=== PATIENT | female | born 1985 | race Two or more races ===

== ENCOUNTER → 2023-10-21 13:15 | Outpatient (REF) | payer BC, SELFPAY | LOC: WDC 13:15 | PROVIDERS: ATTENDING PHYSICIAN Family Medicine | DX: Z12.31 Encounter for screening mammogram for malignant neoplasm of breast (principal) | CPT/HCPCS: 77063; 77067 ==

== ENCOUNTER → 2023-11-18 09:12 | Outpatient (REF) | payer BC, SELFPAY | LOC: WDC 09:12 | PROVIDERS: ATTENDING PHYSICIAN Family Medicine | DX: R92.2 Inconclusive mammogram (principal) | CPT/HCPCS: 76641 ==

== ENCOUNTER 2024-10-20 17:51 | Emergency (ER) | payer OTHER, SELFPAY ==
[2024-10-20 17:57] VITALS: BP 126/77
[2024-10-20 18:23] LABS: Hematocrit 30.0 % (37.0-47.0); Hemoglobin 10.1 g/dL (12.0-16.0); Mean Corp Hgb Conc. 33.7 g/dL (33.0-37.0); Mean Corpuscular Volume 80.9 fL (81.0-99.0); Nucleated Red Blood Cells % 0 %; Platelet Count 287 10^3/uL (130-400); Red Cell Dist. Width 12.6 % (11.5-14.5)
[2024-10-20 18:50] LABS: HCG, Serum Qualitative Screen Negative
[2024-10-20 18:56] LABS: ALT (SGPT) 16 U/L (0-35); AST (SGOT) 19 U/L (14-36); Albumin 4.2 g/dl (3.5-5.0); Alkaline Phosphatase 39 U/L (38-126); Blood Urea Nitrogen 8 mg/dl (7-17); Calcium 9.1 mg/dl (8.4-10.2); Carbon Dioxide 25 mmol/L (22-30); Chloride 102 mmol/L (98-107); Glucose 101 mg/dl (70-99); Lipase 72 U/L (23-300); Potassium 4.3 mmol/L (3.5-5.1); Sodium 134 mmol/L (135-145); Total Protein 7.1 g/dl (6.3-8.2); eGFR > 60.00
--- NOTE | 2024-10-20 19:38 | ED.GENMED ---
Addendum entered and electronically signed by Cassy Diaz NP 10/22/24 16:39:
Stool neg for Cdiff
Original Note:
History of Present Illness
General
Chief Complaint: Abdominal Symptoms
Source: patient
Exam Limitations: none
Time Seen by Provider: 10/20/24 19:37
Nursing documentation reviewed up to this point in time: agreed with
History of Present Illness
History of Present Illness:
39 yo female w h/o HLD, Hypothyroid, presents with complaints of stomach cramps and diarrhea. The symptoms began suddenly 2 evenings ago and are characterized by a sensation of bubbling in the abdomen followed by an urgent need to have a bowel
movement, resulting in diarrhea. The patient reports that the diarrhea is watery with no presence of blood, but it has an unusual odor. She feels a sensation of fullness and discomfort prior to bowel movements.
Associated symptoms include chills but no fever. The patient denies any fever, nausea, or vomiting. She reports the last episode of diarrhea occurred approximately 20 minutes ago. She denies recent antibiotic use and recent travel.
Patient also states she has had lateral right hip pain for the past month with no recollection of overuse or injury
Past History
Past History
ED Past Medical History: Hypercholesterolemia and Other (Sandie's thyroiditis, vitamin D deficiency)
Social History
Tobacco: Non-smoker
Alcohol: None
Personal:
Living: with family
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
Review of Systems
Review of Systems
Allergies reviewed?: Yes
All Other Systems: ROS reviewed and negative except as documented in HPI and ROS
Constitutional: Reports chills; Denies fever
Respiratory: Denies trouble breathing
Cardiac: Denies chest pain
ABD/GI: Reports abdominal pain, nausea and diarrhea; Denies vomiting, bloody stools or black stools
: Denies dysuria, frequency or difficulty voiding
Musculoskeletal: Reports other (pain lateral aspect right hip past month)
Skin: Reports no symptoms
Neurological: Reports no symptoms
Phy Exam
Physical Exam
Physical Exam:
GENERAL: No acute distress. A&Ox3.
CONSTITUTIONAL: Afebrile.
EYES: clear, conjunctivae normal
ENMT: moist mucus membranes
RESPIRATORY: Regular respirations, nonlabored, lungs clear.
CARDIOVASCULAR: Regular rate and rhythm, no murmurs, no rubs.
GI: Soft, mildly generally tender, no guarding, nondistended, normal BS
MUSCULOSKELETAL: Moves with ease. Well perfused. Mildly tenderness to palpate lateral right hip. Full ROM with no joint pain or tenderness. Distal n/v intact.
SKIN: Warm, dry, normal
PSYCH: Normal mood and affect. Well kept, interactive and appropriate
NEUROLOGIC: Awake, alert and oriented. No focal neurological deficits
Course
Orders/Labs/Results
Orders:
Orders
10/20/24 18:00
Test Result ONCE
10/20/24 18:16
Complete Blood Count/With Diff Urgent
Comprehensive Metabolic Panel Urgent
HCG, Serum Qualitative Screen Urgent
Lipase Urgent
10/20/24 19:47
CT Abd/pel W Iv And Oral Contr Urgent
Comment:
Reason For Exam: general abd pain, diarrhea, bloating 3 aays
Iohexol [Omnipaque] See Protocol PO NOW STA
10/20/24 19:56
Hip, Right 2-3 Views [CR Hip - RT w/wo Pel 2-3 Vw*] Urgent
Comment:
Reason For Exam: lateral hip pain one month, no known injury
Include a pelvis x-ray?: No
10/20/24 21:00
CDIFF [C difficile Antigen & Toxins] Urgent
[facility] Source: Feces/Stool
Specimen Description:
Date Specimen was Collected: 10/20/24
Time Specimen was Collected: 20:50
Stool Culture Urgent
[facility] Source: Feces/Stool
Specimen Description:
Date Specimen was Collected: 10/20/24
Time Specimen was Collected: 20:50
10/20/24 21:49
Dexamethasone Sod Phosphate [Decadron] 10 mg IV NOW STA
10/20/24 22:47
Amoxicillin 875 mg/Clav 125 mg [Augmentin 875 mg/125 mg] 1 tablet PO NOW STA
Abnormal Lab Results
10/20/24
18:16
RBC 3.71 L 10^6/uL
(4.20-5.40)
Hgb 10.1 L g/dL
(12.0-16.0)
Hct 30.0 L %
(37.0-47.0)
MCV 80.9 L fL
(81.0-99.0)
Lymphocytes % 17.6 L %
(20.5-51.1)
Sodium 134 L mmol/L
(135-145)
Glucose 101 H mg/dl
(70-99)
10/20/24 18:16
10/20/24 18:16
Vital Signs
Initial and Last Documented VS:
Initial Vital Signs
Temp Pulse Resp BP Pulse Ox
100.3 F 98 16 126/77 100
10/20/24 17:57 10/20/24 17:57 10/20/24 17:57 10/20/24 17:57 10/20/24 17:57
Last Documented Vital Signs
Temp Pulse Resp BP Pulse Ox
100.3 F 84 16 100/71 99
10/20/24 17:57 10/20/24 23:02 10/20/24 23:02 10/20/24 23:02 10/20/24 23:02
MDM/Problems Addressed
Differential Diagnosis Includes:
The Differential Diagnosis includes, in no particular order and is not limited to:
1. Viral Gastroenteritis
2. Bacterial Gastroenteritis
3. Food Poisoning
4. Inflammatory Bowel Disease
5. Irritable Bowel Syndrome
6. Clostridium difficile infection
MDM/Problems Addressed:
39 yo female w h/o HLD, Hypothyroid, presents with complaints of stomach cramps and diarrhea. The symptoms began suddenly 2 evenings ago and are characterized by a sensation of bubbling in the abdomen followed by an urgent need to have a bowel
movement, resulting in diarrhea. The patient reports that the diarrhea is watery with no presence of blood, but it has an unusual odor. She feels a sensation of fullness and discomfort prior to bowel movements.
Associated symptoms include chills but no fever. The patient denies any fever, nausea, or vomiting. She reports the last episode of diarrhea occurred approximately 20 minutes ago. She denies recent antibiotic use and recent travel.
Patient also states she has had lateral right hip pain for the past month with no recollection of overuse or injury
Afebrile, NAD
No systemic infectious symptoms
Problem list:
Acute Problems:
- Acute Gastroenteritis
- Suspected Bursitis
Plan:
1. Obtain a stool sample for bacterial culture to rule out infections such as Clostridium difficile, Salmonella, etc.
2. Order a Computed Tomography scan of the abdomen for further evaluation of abdominal symptoms.
3. Prescribe a short course of prednisone for suspected bursitis.
4. Advise symptomatic management with ice or heat application to the affected hip area as tolerated and the use of ibuprofen for pain relief.
5. Educate the patient on the signs of worsening symptoms and when to seek urgent care.
CBC: Hgb 10.1 otherwise unremarkable (nothing to compare)
CMP: Normal
HCG neg
Xray Right Hip: Calcific bursitis
10:40 p.m.
CAT scan abdomen pelvis with p.o. and IV contrast radiology report read:IMPRESSION:
1. Acute uncomplicated pancolitis, likely of infectious/inflammatory etiology.
2. Indeterminate 8 mm hepatic lesion. Recommend outpatient workup with dedicated MRI abdomen without and with gadolinium contrast.
*Pulse Oximetry
SaO2: 100
Oxygen Mode of Delivery: Room air
Patient hypoxic: not evaluated
*Critical Care Note
Total Time (30-74mins, 75-104mins- exclusive of procedures): Not Applicable
ED Attending Note
-
Portions of this chart may have been created with voice recognition software.� Occasional wrong word or��sound alike� substitutions may have occurred due to the inherent limitations of voice recognition software.
Discharge Plan
Departure
Patient Disposition: Home (Routine Discharge)
Date of Disposition: 10/20/24
Time of Disposition: 22:47
Patient with high blood pressure during this ER visit?: No
Condition: Fair
Discharge Problem:
Pancolitis, calcific bursitis right hip
Instructions: Diarrhea in teens and adults, Clear Liquid Diet, Hip Bursitis Exercises, Colitis, Bursitis - ED discharge instructions
Prescriptions:
New
amoxicillin-pot clavulanate 875-125 mg tablet
1 tab PO Q12H Qty: 20 0RF
prednisone 20 mg tablet
40 mg PO DAILY Qty: 8 0RF
ondansetron 4 mg tablet,disintegrating
4 mg PO Q8H PRN (Reason: nausea and vomiting) 4 Days Qty: 12 0RF
Referrals:
Jacob Arteaga DO [Family Provider, Internal Medicine]
Lucy Boyle DO [Active, Gastroenterology] - Call in 1-3 days for appt
Activity Restrictions/Additional Instructions:
As we discussed, you have colitis
Until we get your stool cultures back do not take any antidiarrheal medication
Return here immediately for bloody stools, worsening abdominal pain, fever or feeling sicker in any way
Clear liquid diet for 1-2 days, then slowly advance diet as tolerated.
I sent a prescription to your pharmacy for Augmentin to take twice a day for 10 days starting tomorrow as we gave you a dose here today. I also sent a prescription to your pharmacy for Zofran to use for nausea as needed
You may call me at [phone] on Friday if you haven't heard any results of your stool tests by then
I gave you the name of the GI doctor to follow-up with, call tomorrow and ask when they want to see you
You have a small spot on your liver, as we noted in the CT report please discuss with your primary doctor or the GI doctor to have it further evaluated.
Have your Hemoglobin rechecked also, discuss with your primary doctor.
You have bursitis in your hip. I sent a prescription to your pharmacy for Prednisone to take 40 mg daily for 4 days. You were given a dose of steroid here.
Interventions
Interventions:
*Risk Screen - Suicide Last Done: 10/20/24 20:19
*General Assessment Last Done: 10/20/24 20:19
*Neglect/Abuse Screening Last Done: 10/20/24 20:19
*ED- Fall Risk Assessment Last Done: 10/20/24 20:19
*ED COVID-19 Vaccine History Last Done: 10/20/24 20:19
XP-Clzeel-Kxtpmrntkl Assessment Last Done: 10/20/24 20:24
ED- Cardiac Assessment Last Done: 10/20/24 20:24
ED- Neurological Assessment Last Done: 10/20/24 20:24
ED- Pulmonary Assessment Last Done: 10/20/24 20:24
Discharge Date and Time
Print Language: TELUGU
[2024-10-20] MEDS: OMNIPAQUE 50 ML PO (20:15)
[2024-10-20 20:16] VITALS: BMI 22.4
[2024-10-20 20:17] VITALS: BP 111/77
[2024-10-20 22:06] VITALS: BP 105/74
[2024-10-20] MEDS: DECADRON 10 MG IV (22:08)
[2024-10-20 23:02] VITALS: BP 100/71
[2024-10-20] MEDS: AUGMENTIN 875 MG/125 MG 1 TABLET PO (23:02)
== END 2024-10-20 23:25 | disposition home or self-care (01) ==
LOC: EMR 17:51
PROVIDERS: Student in an Organized Health Care Education/Training Program; EMERGENCY PHYSICIAN Emergency Medicine; FAMILY PHYSICIAN Internal Medicine
DX: M71.551 Other bursitis, not elsewhere classified, right hip (principal); K52.9 Noninfective gastroenteritis and colitis, unspecified; R11.0 Nausea; E78.00 Pure hypercholesterolemia, unspecified; E06.3 Autoimmune thyroiditis; E55.9 Vitamin D deficiency, unspecified; Z88.2 Allergy status to sulfonamides; Z91.048 Other nonmedicinal substance allergy status
CPT/HCPCS: 99284; 96374; 73502; 74177; 80053; 83690; 84703; 85025; 87045; 87046; 87324; 87427; 87449; Q9967